=== PATIENT | male | born 1955 | race Caucasian/White ===

== ENCOUNTER → 2017-04-19 | Emergency (ER) | payer BC, OTHER ==
[~2017-04-19] MED LIST: ACETAMINOPHEN 325 MG TABLET (FP) ONE; ACETAMINOPHEN 325 MG TABLET (FP) PO ONE; ONDANSETRON 4 MG/2 ML VIAL IVPB ONE; ONDANSETRON 4 MG/2 ML VIAL ONE; SODIUM CHLORIDE 1,000 ML IV ONE
--- NOTE | 2017-04-19 16:48 | PDOC ---
History of Present Illness <Peter Montiel - Last Filed: 04/19/17 18:27> - General History Source: Patient Exam Limitations: No Limitations - History of Present Illness Initial Comments: 04/19/17 18:58 The patient is a 62 year old male with a significant past medical history of hypertension, diabetes, and hyperlipidemia, brought by ambulance to the Emergency Department after falling and hitting his head just prior to arrival. The patient reports that he was playing softball when he walked backwards to catch a ball and fell backwards, landing on his back first then his head. He denies loss of consciousness and remembers the fall. He reports that his friends then walked him into the shade when he began feeling dizzy, what he describes as vertigo, and vomited three times. He admits that he is dizzy and tired, but denies a headache. He admits to some back pain and spasms. The patient denies neck pain. Patient denies blurry vision, double vision, and visual changes. No associated numbness/tingling/weakness. Patient denies chest pain, palpitations, and shortness of breath. Patient denies fever, chills, and cough. PCP: Dr. Yousif <Deneen Bentley - Last Filed: 04/19/17 18:59> - General Chief Complaint: Nausea/Vomiting Stated Complaint: INJURY TO HEAD Time Seen by Provider: 04/19/17 16:25 Past History - Past Medical History Diabetes: Yes HTN: Yes Hypercholesterolemia: Yes - Psycho/Social/Smoking Cessation Hx Anxiety: No Suicidal Ideation: No Smoking History: Never smoked Have you smoked in the past 12 months: No Information on smoking cessation initiated: No Hx Alcohol Use: No Drug/Substance Use Hx: No Substance Use Type: Alcohol <Peter Montiel - Last Filed: 04/19/17 18:27> <Deneen Bentley - Last Filed: 04/19/17 18:59> - Past Medical History Allergies/Adverse Reactions: Allergies Allergy/AdvReac Type Severity Reaction Status Date / Time No Known Allergies Allergy Verified 04/19/17 16:30 Home Medications: Ambulatory Orders Aspirin [ASA -] 81 mg PO DAILY 12/21/15 Fosinopril Sodium [Monopril -] 10 mg PO DAILY 12/21/15 Glipizide [Glipizide ER] 10 mg PO DAILY 12/21/15 Sitagliptin Phos/Metformin HCl [Janumet 50-1,000 mg Tablet] 1 tab PO BID Tamsulosin HCl [Flomax] 0.8 mg PO DAILY 12/21/15 Cyclobenzaprine HCl [Flexeril 10 mg] 10 mg PO BID PRN #15 tablet 04/19/17 Review of Systems - Review of Systems Able to Perform ROS?: Yes Comments:: 04/19/17 18:58 CONSTITUTIONAL: Reported: + dizziness No reported: Fever, Chills, Diaphoresis, Generalized Weakness, Malaise, Loss of Appetite HEENT: No reported: Rhinorrhea, Nasal Congestion, Throat Pain, Throat Swelling, Difficulty Swallowing, Mouth Swelling, Ear Pain, Eye Pain, Visual Changes CARDIOVASCULAR: No reported: Chest Pain, Syncope, Palpitations, Irregular Heart Rate, Lightheadedness, Peripheral Edema RESPIRATORY: No reported: Cough, Shortness of Breath, SOB with Exertion, Orthopnea, Wheezing , Stridor, Hemoptysis GASTROINTESTINAL: Reported: + nausea, + three episodes of vomiting No reported: Abdominal pain, Abdominal Distension, Diarrhea, Constipation, Melena, Hematochezia GENITOURINARY: No reported: Dysuria, Frequency, Urgency, Hesitancy, Flank Pain, Genital Pain MUSCULOSKELETAL: No reported: Myalgia, Arthralgia, Joint Swelling, Back pain, Neck Pain SKIN: No reported: Rash, Itching, Pallor HEMATOLOGIC/IMMUNOLOGIC: No reported: Easy Bleeding, Easy Bruising, Lymphadenopathy, Frequent infections ENDOCRINE: No reported: Unexplained Weight Gain, Unexplained Weight Loss, Heat Intolerance , Cold Intolerance NEUROLOGIC: No reported: Headache, Focal Weakness, Paresthesias, Lightheadedness, Seizure, Mental Status Changes, Incontinence PSYCHIATRIC: No reported: Anxiety, Depression <Deneen Bentley - Last Filed: 04/19/17 18:59> *Physical Exam - Vital Signs Last Vital Signs Temp Pulse Resp BP Pulse Ox 98.0 F 67 18 127/72 100 04/19/17 16:27 04/19/17 16:27 04/19/17 16:27 04/19/17 16:27 04/19/17 16:27 <Peter Montiel - Last Filed: 04/19/17 18:27> - Vital Signs Last Vital Signs Temp Pulse Resp BP Pulse Ox 98.0 F 67 18 127/72 100 04/19/17 16:27 04/19/17 16:27 04/19/17 16:27 04/19/17 16:27 04/19/17 16:27 - Physical Exam Comments: 04/19/17 18:58 GENERAL: The patient is awake, alert, and fully oriented, Nontoxic - in no acute distress. HEAD: Normocephalic, atraumatic. EYES: extraocular movements intact, sclera anicteric, conjunctiva clear, no nystagmus. ENT: Normal voice, Moist mucous membranes. NECK: Normal range of motion, supple LUNGS: Breath sounds equal, clear to auscultation bilaterally. No wheezes, no rhonchi, no rales. HEART: Regular rate and rhythm, normal S1 and S2 without murmur, rub or gallop. ABDOMEN: Soft, nontender, normoactive bowel sounds. No guarding, no rebound. . No CVA tenderness EXTREMITIES: Normal range of motion, no edema. No clubbing or cyanosis. No cords, erythema, or tenderness. NEUROLOGICAL: No facial assymetry, Normal speech, PSYCH: Normal mood, normal affect. SKIN: Warm, Dry, normal turgor, Back: No midline tenderness to the cervical, thoracic or lumbar spine Musculoskelatal: FROM of b/l shoulders, elbows, wrist. FROM of hips, knees, ankles - No signs of ecchymosis, erythema, or crepitus noted on palpation extremities, chest wall, clavicals, ribs, back. <Deneen Bentley - Last Filed: 04/19/17 18:59> Heart Score/ECG Review - ECG Impressions Comment:: 04/19/17 16:52 Twelve-lead EKG was performed and reviewed by me. There is normal sinus rhythm with a normal rate. Rate of 65 The axis is normal. The intervals are normal. There is normal R wave progression There are no ST or T wave abnormalities. Impression: Normal twelve-lead EKG <Peter Montiel - Last Filed: 04/19/17 18:27> ED Treatment Course - Medications Given in the ED: ED Medications Discontinued Medications Generic Name Dose Route Start Last Admin Trade Name Freq PRN Reason Stop Dose Admin Acetaminophen 650 mg 04/19/17 18:27 04/19/17 18:39 Tylenol - PO 04/19/17 18:28 650 mg ONCE ONE Administration Sodium Chloride 1,000 mls @ 1,000 mls/hr 04/19/17 16:46 04/19/17 17:26 Normal Saline - IV 04/19/17 17:45 1,000 mls/hr .Q1H ONE Administration Ondansetron HCl 4 mg 04/19/17 16:46 04/19/17 17:26 Zofran Injection IVPB 04/19/17 16:47 4 mg ONCE ONE Administration <Deneen Bentley - Last Filed: 04/19/17 18:59> Medical Decision Making - Medical Decision Making 04/19/17 16:50 62y M hx of dm, hl, htn presents s/p head injury pt was playing softball when he back pedaled to catch the ball, fell down hit his head, felt dizzy/jake when he stood up, and vomited 3x. pt denies any current headache, nausea vomiting, vision changes, cp, palpitations, abd pain pt did endorse some mild back pain from the afll, no associated numbnes/ stingling/weakness. A portion of this note was documented by scribe services under my direction. I have reviewed the details of the note, within reason, and agree with the documentation with the following case summary and management plan written by me 04/19/17 18:27 ct head negative pt feeling improved w/o headache, dizziness, n/v, but does endorses some spasms in his L lower back will give pt some tylenol pt declines anything stronger. wll d/c the pt with pmd fu returnprecautions were discussed I discussed the physical exam findings, ancillary test results and final diagnoses with the patient. I answered all of the patient's questions. The patient was satisfied with the care received and felt comfortable with the discharge plan and treatment plan. The patient will call their primary care physician within 24 hours to arrange follow-up and will return to the Emergency Department with any new, persistent or worsening symptoms. <Peter Montiel - Last Filed: 04/19/17 18:27> *DC/Admit/Observation/Transfer - Discharge Dispostion Admit: No <Peter Montiel - Last Filed: 04/19/17 18:27> - Attestations Scribe Attestion: 04/19/17 18:58 Documentation prepared by Deneen Bentley, acting as medical charge entry specialist for Peter Montiel MD. <Deneen Bentley - Last Filed: 04/19/17 18:59> Diagnosis at time of Disposition: Back spasm Head injury Qualifiers: Encounter type: initial encounter Qualified Code(s): S09.90XA - Unspecified injury of head, initial encounter - Prescriptions Prescriptions: Cyclobenzaprine HCl [Flexeril 10 mg] 10 mg PO BID PRN #15 tablet PRN Reason: Back Pain - Referrals Referrals: Madina Yousif MD [Primary Care Provider] - - Patient Instructions Printed Discharge Instructions: DI for Closed Head Injury Additional Instructions: Eat light. Clear liquids, such as broth or gelatin, are a good choice. Don't drink alcohol or use any recreational drugs. Don't return to sports or any activity that could cause you to hit your head until all symptoms are gone and you have been cleared by your doctor. A second head injury before full recovery from the first one can lead to serious brain injury. Avoid activities that require a lot of concentration or attention (including reading, surfing the web, watching tv). This will allow your brain to rest and heal more quickly. Take ibuprofen or tylenol as needed for headache. Take the flexeril as needed for your back spasms Follow up with your primary care doctor in 5 days. Follow up with neurology in 2 weeks, especially if your symptoms have not yet resolved. Print Language: YORUBA
[2017-04-19 16:49] VITALS: BP 127/72; PULSE 67; TEMP 98; BMI 35.3
--- NOTE | 2017-04-23 11:40 | EKG ---
Test Reason : Blood Pressure : / mmHG Vent. Rate : 065 BPM Atrial Rate : 065 BPM P-R Int : 164 ms QRS Dur : 110 ms QT Int : 390 ms P-R-T Axes : 008 -22 037 degrees QTc Int : 405 ms NORMAL SINUS RHYTHM NORMAL ECG NO PREVIOUS ECGS AVAILABLE Confirmed by EVERARDO OLSEN MD ([id number]) on 04/23/2017 11:39:35 AM Referred By: Confirmed By:EVERARDO OLSEN MD
== END | disposition home or self-care (01) ==
LOC: JER 16:09
PROC: 3E033GC Introduction of Other Therapeutic Substance into Peripheral Vein, Percutaneous Approach (ICD-10-PCS; principal; 2017-04-19)
DX: S09.8XXA Other specified injuries of head, initial encounter (principal); M62.830 Muscle spasm of back; W18.39XA Other fall on same level, initial encounter; Y93.64 Activity, baseball; Y92.320 Baseball field as the place of occurrence of the external cause; Y99.8 Other external cause status; I10 Essential (primary) hypertension; E11.9 Type 2 diabetes mellitus without complications; Z79.84 Long term (current) use of oral hypoglycemic drugs; E78.5 Hyperlipidemia, unspecified
CPT/HCPCS: 70450-TC; 93005; 93010; 99283-25

== ENCOUNTER 2021-09-05 06:07 | Day surgery (SDC) | payer BC ==
[2021-08-30 12:19] VITALS: BMI 33.6
[2021-09-05] MEDS ORDERED: BUPIVACAINE HCL 50 ML ONE (07:13)
[2021-09-05] MEDS ORDERED: LIDOCAINE 1%/EPI 1:100000 (20 ML MULTI DOSE VIAL) ONE (07:13)
[2021-09-05] MEDS ORDERED: ERYTHROMYCIN 0.5% OPHTHALMIC OINTMENT 3.5 GM TUBE ONE (07:13)
[2021-09-05] MEDS ORDERED: ceFAZolin SODIUM 1 GM VIAL ONE ×2 (07:13→07:16)
[2021-09-05] MEDS ORDERED: TETRACAINE 0.5% OPHTH SOLN 2 ML BOTTLE ONE (07:13)
[2021-09-05] MEDS ORDERED: POVIDONE-IODINE 5% OPHTHALMIC PREP 30 ML SOLUTION ONE (07:14)
[2021-09-05] MEDS ORDERED: MIDAZOLAM HCL 2 MG/2 ML SINGLE DOSE VIAL ONE (07:16)
[2021-09-05] MEDS ORDERED: PROPOFOL 20 ML ONE ×3 (07:16→08:21)
[2021-09-05] MEDS ORDERED: ONDANSETRON 4 MG/2 ML VIAL IVPUSH PRN (09:05)
[2021-09-05] MEDS ORDERED: oxyCODONE HCL 5 MG TABLET PO PRN (09:05)
[2021-09-05] MEDS ORDERED: LACTATED RINGERS SOLUTION 1,000 ML IV SCH (09:15)
[2021-09-05 09:59] VITALS: TEMP 97.8
[2021-09-05 10:29] VITALS: BP 118/69; PULSE 55
== END 2021-09-05 11:15 | disposition home or self-care (01) ==
LOC: FASU 06:07
PROVIDERS: ATTEND Ophthalmology
PROC: 08SP0ZZ Reposition Left Upper Eyelid, Open Approach (ICD-10-PCS; principal; 2021-09-05 08:08)
PROC: 0W020ZZ Alteration of Face, Open Approach (ICD-10-PCS; 2021-09-05 08:08)
DX: H02.402 Unspecified ptosis of left eyelid (principal); H57.811 Brow ptosis, right; H02.831 Dermatochalasis of right upper eyelid
CPT/HCPCS: 82962; 88304-TC; 94760